=== PATIENT | female | born 2000 | race Caucasian/White ===

== ENCOUNTER 2021-06-25 15:48 | Emergency (ER) | payer OTHER ==
[~2021-06-25] VITALS: Ht 165.1 cm; Wt 88.5 kg
[2021-06-25 15:52] VITALS: BP 180/80
[2021-06-25] MEDS ORDERED: IBUPROFEN 600 MG TAB PO ONE (16:30)
--- NOTE | 2021-06-25 17:09 | NUR ---
PT AMBULATED TO ER BED 4
--- NOTE | 2021-06-25 17:35 | NUR ---
PA Mendoza at bedside evaluating patient.
--- NOTE | 2021-06-25 17:51 | NUR ---
AYLIN Mendoza at bedside applying splint
[2021-06-25] MEDS ORDERED: IBUP-2213 PO (17:57)
[2021-06-25] MEDS ORDERED: CYCL-711 PO (17:57)
[2021-06-25] MEDS ORDERED: BACI1PAC6 TP (17:57)
[2021-06-25] MEDS ORDERED: IBUPROFEN 600 MG TAB ONE (18:07)
--- NOTE | 2021-06-25 18:45 | NUR ---
Patient discharged with v/s stable. Written and verbal after care instructions given. Patient alert, oriented and verbalized understanding of instructions. Ambulatory with steady gait. All questions addressed prior to discharge. ID band removed. Patient advised to follow up with PMD. Rx of Bacitracin, Flexeril and Ibuprofen given. Opportunity to ask questions provided and answered. Copies of X-Rays were given to patient.
== END 2021-06-25 18:45 | disposition home or self-care (01) ==
LOC: MED 15:48
DX: S62.396A Other fracture of fifth metacarpal bone, right hand, initial encounter for closed fracture (principal); S61.411A Laceration without foreign body of right hand, initial encounter; S90.31XA Contusion of right foot, initial encounter; S00.81XA Abrasion of other part of head, initial encounter; Z79.899 Other long term (current) drug therapy; Z79.2 Long term (current) use of antibiotics; Z79.1 Long term (current) use of non-steroidal anti-inflammatories (NSAID); V89.2XXA Person injured in unspecified motor-vehicle accident, traffic, initial encounter; Y93.89 Activity, other specified; Y92.410 Unspecified street and highway as the place of occurrence of the external cause; Y99.8 Other external cause status
CPT/HCPCS: 12001; 73130; 73630; 90471; 90715; 99284